=== PATIENT | male | born 1955 | race Two or more races ===

== ENCOUNTER 2017-10-13 13:03 | Inpatient (IN) | payer MEDICARE, MEDICAID ==
[~2017-10-13] VITALS: Ht 190.5 cm; Wt 104.4 kg
[~2017-10-13 13:03] MED LIST: AMBIEN10 MG ORAL; IBUPROFEN800 MG ORAL; LIPITOR20 MG ORAL; QUETIAPINE FUM100 MG ORAL
[2017-10-14 18:06] VITALS: BP 113/78
[2017-10-14] MEDS ORDERED: TIZANIDINE HCL4 MG ORAL (18:13)
[2017-10-14] MEDS ORDERED: REMERON30 MG ORAL (18:13)
[2017-10-14] MEDS ORDERED: TAMSULOSIN HCL0.4 MG ORAL (18:13)
[2017-10-14] MEDS ORDERED: ZYPREXA5 MG ORAL (18:13)
[2017-10-14] MEDS ORDERED: LYRICA25 MG ORAL (18:13)
[2017-10-14] MEDS ORDERED: NORVASC10 MG ORAL (18:13)
[2017-10-14 20:30] VITALS: BP 95/62
[2017-10-14] MEDS ORDERED: traMADol 50mg tab ORAL PRN (20:45)
[2017-10-14] MEDS ORDERED: HYDROcodone/Acetamin 10/325 tab ORAL PRN (20:45)
[2017-10-14] MEDS ORDERED: Zolpidem 5mg tab ORAL PRN (20:45)
[2017-10-15 00:18] VITALS: BP 116/62
--- NOTE | 2017-10-15 02:15 | History and Physical Report ---
DATE OF ADMISSION: 10/14/2017 REASON FOR ADMISSION: Intractable pain, dehydration, and weakness. HISTORY OF PRESENT ILLNESS: This is a 62-year-old male, who has past medical history of chronic back pain. He has currently nerve palsy, on the left side; hypertension; and degenerative arthritis came to the hospital where he has intractable pain. Time by time, has been taking [place], pain and the patient is crippled, unable to function at home, and not to currently do any chores. The patient denies any chest pain or palpitation. PAST MEDICAL HISTORY: As listed in H and P. MEDICATIONS: See the list. ALLERGIES: NKA. FAMILY HISTORY: Noncontributory. SOCIAL HISTORY: Lives at home. He quit smoking and alcohol. REVIEW OF SYSTEMS: Generalized weakness, intractable pain, weight loss, and worsening of his weakness on the left side of leg. PHYSICAL EXAMINATION: VITAL SIGNS: His blood pressure is 160/90, pulse 74, and respirations 18. No fever. SKIN: Good skin turgor. HEENT: NAD. CHEST: Bilaterally clear. CARDIOVASCULAR: Regular rhythm. No gallop. No murmur. ABDOMEN: Soft. Positive bowel sounds. Nontender. EXTREMITIES: No edema. NEUROLOGICAL: Left-sided footdrop. GENITOURINARY: Deferred. LABORATORY DATA: No labs today. ASSESSMENT AND PLAN: 1. Intractable pain. 2. Deconditioning. 3. Dehydration. 4. Severe degenerative arthritis. We will admit on medical floor. Consider pain management. Start tramadol, [place], and lidocaine patch. PT and OT. X-ray of the left knee as well as lower back. 5. Hypertension is controlled. Continue with home medications. Maverick Bowie M.D. DR: RASHAWN JOB#: [id number] CC:
[2017-10-15 04:34] VITALS: BP 122/74
[2017-10-15 06:51] LABS: BASOPHILS % (AUTO) 1.6 % (0.0-2.0); EOSINOPHILS % (AUTO) 6.9 % (0.0-3.0); HEMATOCRIT 42.9 % (42.0-52.0); HEMOGLOBIN 14.6 G/DL (14.2-18.0); LYMPHOCYTES % (AUTO) 29.1 % (20.0-45.0); MEAN CORPUSCULAR VOLUME 89 FL (80-99); MONOCYTES % (AUTO) 8.1 % (1.0-10.0); NEUTROPHILS % (AUTO) 54.3 % (45.0-75.0); PLATELET COUNT 183 K/UL (150-450); RED BLOOD COUNT 4.83 M/UL (4.70-6.10); RED CELL DISTRIBUTION WIDTH 11.4 % (11.6-14.8); WHITE BLOOD COUNT 5.4 K/UL (4.8-10.8)
[2017-10-15 07:22] LABS: ALANINE AMINOTRANSFERASE 12 U/L (12-78); ALBUMIN/GLOBULIN RATIO 0.9 (1.0-2.7); ALKALINE PHOSPHATASE 64 U/L (46-116); ANION GAP 5 mmol/L (5-15); ASPARTATE AMINO TRANSFERASE 20 U/L (15-37); BILIRUBIN,TOTAL 0.8 MG/DL (0.2-1.0); BLOOD UREA NITROGEN 16 mg/dL (7-18); CALCIUM 8.7 MG/DL (8.5-10.1); CARBON DIOXIDE 28 MMOL/L (21-32); CHLORIDE 108 MMOL/L (98-107); POTASSIUM 3.7 MMOL/L (3.5-5.1); SODIUM 141 MMOL/L (136-145)
[2017-10-15 08:00] VITALS: BP 115/70
[2017-10-15] MEDS: Atorvastatin 20mg tab ORAL SCH (08:41)
[2017-10-15] MEDS: Tamsulosin 0.4mg cap ORAL SCH (08:44)
[2017-10-15] MEDS: Cyclobenzaprine 10mg Tab ORAL SCH ×2 (08:45→17:21)
[2017-10-15] MEDS: Lyrica 25mg cap ORAL SCH ×3 (10:48→17:21)
--- NOTE | 2017-10-15 11:57 | Diagnostic Imaging Report ---
Indication: Knee pain 2 views of the left knee were obtained. Findings: No acute fracture, malalignment, or joint effusion are identified. Bones are osteopenic. Marginal spurs and joint space narrowing noted. Impression: No acute injury
--- NOTE | 2017-10-15 11:58 | Diagnostic Imaging Report ---
Indication: Back pain Comparison: None Findings: 5 views of the lumbar spine were obtained. Multilevel narrowing of intervertebral disks and associated endplate and moderate facet osteophytes are present. No malalignment identified. No acute fracture definitely seen. Impression: Mild spondylosis. No acute injury appreciated.
[2017-10-15 12:00] VITALS: BP 114/71
[2017-10-15 16:00] VITALS: BP 110/69
[2017-10-15 20:00] VITALS: BP 122/78
--- NOTE | 2017-10-15 22:00 | Progress Note ---
DATE: 10/15/2017 SUBJECTIVE: The patient is a 62-year-old male, currently awake, comfortable, and still having intractable pain, but is improving. OBJECTIVE: VITAL SIGNS: Blood pressure 140/90, pulse 70s, and respirations 18. HEENT: NAD. CHEST: Bilaterally clear. CARDIOVASCULAR: Regular rhythm. No gallop. No murmur. ABDOMEN: Soft. EXTREMITIES: CCE. NEUROLOGICAL: Generalized weakness. ASSESSMENT: 1. Intractable pain. 2. Foot drop. 3. Hypertension. 4. Generalized weakness. LABORATORY AND DIAGNOSTIC DATA: His labs are unremarkable. X-ray also showed mild arthritis of his spine and knee. PLAN: 1. Consider pain management. 2. Continue current [place] and continue gabapentin. 3. Continue PT and OT. Maverick Bowie M.D. DR: CRISTINA JOB#: [id number] CC:
[2017-10-16 00:59] VITALS: BP 121/64
[2017-10-16 04:59] VITALS: BP 118/78
[2017-10-16 08:00] VITALS: BP 115/70
--- NOTE | 2017-10-16 08:33 | Consultation ---
History of Present Illness General Date patient seen: Oct 16, 2017 Present Illness Allergies: Coded Allergies: No Known Allergies (Unverified , 06/16/13) Medication History Scheduled Amlodipine Besylate (Norvasc), 10 MG ORAL DAILY, (Reported) Ibuprofen* (Motrin*), 800 MG ORAL THREE TIMES A DAY, (Reported) Mirtazapine* (Remeron*), 30 MG ORAL BEDTIME, (Reported) Olanzapine* (Zyprexa*), 5 MG ORAL QHS, (Reported) Pregabalin (Lyrica), 50 MG ORAL THREE TIMES A DAY, (Reported) Quetiapine Fumarate* (Seroquel*), 100 MG ORAL DAILY, (Reported) Tamsulosin Hcl (Tamsulosin Hcl*), 0.4 MG ORAL DAILY, (Reported) Tizanidine Hcl* (Zanaflex*), 4 MG ORAL THREE TIMES A DAY, (Reported) Scheduled PRN Atorvastatin Calcium* (Lipitor*), 20 MG ORAL DAILY PRN for Per rx protocol, ( Reported) Zolpidem Tartrate* (Ambien*), 10 MG ORAL BEDTIME PRN for Insomnia, (Reported) Patient History Healthcare decision maker Resuscitation status Full Code Advanced Directive on File Physical Exam Last 24 Hour Vital Signs Date Time Temp Pulse Resp B/P (MAP) Pulse Ox O2 Delivery O2 Flow Rate FiO2 10/16/17 04:59 97.7 64 18 118/78 (91) 98 97.7 10/16/17 00:59 97.6 68 18 121/64 (83) 98 97.6 10/15/17 22:28 98.2 10/15/17 22:24 Room Air 10/15/17 21:29 98.2 10/15/17 20:00 98.5 73 18 122/78 (93) 98 98.5 10/15/17 18:20 98.2 10/15/17 18:20 98.2 10/15/17 17:21 98.2 10/15/17 17:21 98.2 10/15/17 16:00 98.2 70 19 110/69 (83) 96 98.2 10/15/17 13:28 97.6 10/15/17 13:28 97.6 10/15/17 12:00 97.7 63 18 114/71 (85) 99 97.7 10/15/17 10:48 97.6 10/15/17 08:45 68 115/70 10/15/17 08:44 97.6 Intake and Output 10/15/17 10/16/17 19:00 07:00 Intake Total 480 ml 360 ml Balance 480 ml 360 ml Intake Oral 480 ml 360 ml # Voids 4 3 Height (Feet): 6 Height (Inches): 3.00 Weight (Pounds): 228 Medications Current Medications Medications (Trade) Dose Ordered Sig/Clara Route PRN Reason Start Time Stop Time Status Last Admin Dose Admin Acetaminophen (Tylenol) 650 mg Q4H PRN ORAL Mild Pain/Temp > 100.5 10/14/17 20:45 11/13/17 20:44 10/15/17 21:29 Acetaminophen/ Hydrocodone Bitart ([place] 10/325) 1 tab Q6H PRN ORAL Severe Pain (Pain Scale 7-10) 10/14/17 20:45 10/21/17 20:44 Amlodipine Besylate (Norvasc) 10 mg DAILY ORAL 10/15/17 09:00 11/14/17 08:59 Atorvastatin Calcium (Lipitor) 20 mg DAILY ORAL 10/15/17 09:00 11/14/17 08:59 10/15/17 08:41 Cyclobenzaprine HCl (Flexeril) 10 mg BID ORAL 10/15/17 09:00 11/14/17 08:59 Lidocaine (Lidoderm 5% PATCH) 3 patch DAILY TDERMAL 10/15/17 09:00 11/14/17 08:59 10/15/17 08:44 Mirtazapine (Remeron) 30 mg QHS ORAL 10/14/17 21:30 11/13/17 21:29 Olanzapine (ZyPREXA) 5 mg QHS ORAL 10/14/17 21:00 11/13/17 20:59 Pregabalin (Lyrica) 50 mg THREE TIMES A DAY ORAL 10/15/17 09:00 11/14/17 08:59 10/15/17 17:21 Quetiapine Fumarate (SEROquel) 100 mg DAILY ORAL 10/15/17 09:00 11/14/17 08:59 Sodium Chloride 1,000 ml @ 75 mls/hr [id number] IV 10/14/17 20:45 11/13/17 20:44 Tamsulosin HCl (Flomax) 0.4 mg DAILY ORAL 10/15/17 09:00 11/14/17 08:59 10/15/17 08:44 Tizanidine HCl (Zanaflex) 4 mg THREE TIMES A DAY ORAL 10/15/17 09:00 11/14/17 08:59 10/15/17 17:21 Tramadol HCl (Ultram) 50 mg Q4H PRN ORAL Moderate Pain (Pain Scale 4-6) 10/14/17 20:45 10/21/17 20:44 Zolpidem Tartrate (Ambien) 5 mg BEDTIME PRN ORAL Insomnia 10/14/17 20:45 10/21/17 20:44 10/15/17 21:28 Assessment/Plan Assessment/Plan (1) Cervical DDD (2) Cervical Spondylosis (3) H/O Cervical surgery (4) Lumbar DDD (5) Lumbar Spondylosis (6) H/O Lumbar surgery Seen dictated. Tariq Martinez Oct 16, 2017 08:33
[2017-10-16] MEDS: Tamsulosin 0.4mg cap ORAL SCH (08:46)
[2017-10-16] MEDS: Atorvastatin 20mg tab ORAL SCH (08:46)
[2017-10-16] MEDS: Lyrica 50mg cap ORAL SCH ×3 (08:53→18:16)
[2017-10-16] MEDS: Cyclobenzaprine 10mg Tab ORAL SCH ×2 (08:53→18:17)
[2017-10-16] MEDS ORDERED: Gadavist 7.5mMol/7.5ml vial IV PRN ×2 (09:00)
[2017-10-16] MEDS ORDERED: LORazepam 1mg tab ORAL SCH (10:00)
[2017-10-16 12:00] VITALS: BP 112/72
[2017-10-16 16:00] VITALS: BP 117/86
--- NOTE | 2017-10-16 16:18 | Diagnostic Imaging Report ---
Indication: Neck pain Technique: MRI examination of the cervical spine was performed in a 1.5 Snehal magnet. Sequences obtained include sagittal and axial T1 and T2 fast spin echo, and sagittal STIR. Comparison: none Findings: There is susceptibility 6 artifact at C3-4 presumably due to hardware. Desiccation and narrowing of multiple intervertebral discs demonstrated. There is no obvious disc herniation. There is generalized diminished diameter of the spinal canal throughout the cervical spine presumably congenital. There is limitation with diminished [id number] ratio and resolution partially on the basis of motion. The foramen magnum and C1-2 are unremarkable. C2-3 notable for moderate left foraminal stenosis due to uncovertebral arthritis. C3-4 demonstrates moderate to severe bilateral foraminal stenosis and central spinal stenosis. C4-5 demonstrates central spinal stenosis moderate to severe bilateral foraminal stenosis. C5-6 demonstrates central spinal stenosis and moderate to severe bilateral foraminal stenosis. C6-7 demonstrates moderate to severe bilateral foraminal stenosis and possible mild central stenosis. C7-T1 demonstrates no definite central or neural foraminal stenosis. Bone marrow signal is mostly normal but there is limitation in evaluation of this. The spinal cord difficult to evaluate due to the artifact present. There is a suggestion of mild myelomalacia in the mid to upper part of the cervical spine. IMPRESSION: Limited evaluation as described above. Multilevel mild to moderate central spinal stenosis and moderate to severe bilateral foraminal stenosis as described above.
--- NOTE | 2017-10-16 16:20 | Diagnostic Imaging Report ---
Indication: Back pain Technique: MRI examination of the lumbar spine was performed in a 1.5 Snehal magnet. Sequences obtained include sagittal and axial T1 and T2 fast spin echo, and sagittal STIR. Comparison: none Findings: Bone marrow signal is essentially normal. There is no malalignment identified. The visualized part of the distal spinal cord appears normal. Cord terminates with visualization of the conus medullaris at L1. T12-L1 is unremarkable. L1-2 shows normal appearance of the disc and facets. L2-3 shows hypertrophy of the lumbar facets. There is no evidence of central canal or foraminal stenosis. L3-4 shows desiccation and narrowing of intervertebral disc and a wide based disc bulge that appears concentric. This moderate facet arthropathy demonstrated. Mild central stenosis, narrowing of the lateral recess and mild to moderate bilateral foraminal stenosis demonstrated. L4-5 with desiccation and narrowing of intervertebral discs, wide-based concentric disc bulge and facet arthropathy. Mild central spinal stenosis is present. Mild to moderate bilateral foraminal stenosis narrowing noted. L5-S1 disc appears normal. Facet arthropathy is present. No definite central stenosis or foraminal stenosis. Partially imaged right-sided renal cysts are noted. IMPRESSION: Degenerative disease involving the L3-4 and L4-5 levels characterized by concentric disc bulges, central spinal stenosis, narrowing of the lateral recess and mild to moderate bilateral foraminal stenosis. Multilevel facet arthropathy as described above Multiple cysts within the right kidney partially imaged on this study
--- NOTE | 2017-10-16 19:47 | Consultation ---
DATE OF CONSULTATION: 10/16/2017 PAIN MANAGEMENT CONSULTATION CONSULTING PHYSICIAN: Robin Sanchez M.D. REFERRING PHYSICIAN: Maverick Bowie M.D. PHYSICIAN ACADEMIC INTERVENTIONIST: Karly Medel CHIEF COMPLAINT: Neck and low back pain. HISTORY OF PRESENT ILLNESS: This is a 62-year-old male, who is being seen on the Medical/Surgical floor of [facility] for initial comprehensive pain management consultation. The patient reports that he has been having neck and low back pain for many years, having multiple surgeries on his cervical and lumbar spine, being seen by Dr. Gallardo, receiving [place] 10/325 mg three times a day with Lyrica 50 mg 3 times a day. He was admitted under the care of Dr. Bowie due to failure to thrive and abdominal pain. Reporting that he is doing better at this time. Pain reaches 10/10 at its worst, was started on [place] 10/325 mg one tablet every 6 hours as needed for severe pain and tramadol 50 mg one tablet every 4 hours as needed for moderate pain, however, the patient has not requested those medications at this time. The patient also had been on Neurontin, but it was discontinued and now will be restarted on his home medication of Lyrica 50 mg tablet 3 times a day. We were consulted so that the patient will have adequate pain control while here in the hospital. PAST MEDICAL HISTORY: Hypertension. PAST SURGICAL HISTORY: Cervical and lumbar surgeries. SOCIAL HISTORY: History of smoking tobacco. Drinks alcohol occasionally. Denies IV drug abuse. ALLERGIES: No known drug allergies. MEDICATIONS: Norvasc, Motrin, Remeron, Zyprexa, Lyrica, Seroquel, tamoxifen, Zanaflex, Ambien, Lipitor, and [place]. REVIEW OF SYSTEMS: Denies rash, fever, chills, sweating, dizziness, drowsiness, or change in weight. No shortness of breath. The patient has no nausea, vomiting, diarrhea, or blood in the stool or urine. No bowel or bladder incontinent. He is complaining of neck and low back pain. PHYSICAL EXAMINATION: GENERAL: Alert, awake, and oriented x3. VITAL SIGNS: Blood pressure 118/78, heart rate is 64, oxygen saturation 98%, respirations 18, and temperature 97.7 degrees Fahrenheit. HEENT: PERRLA. NECK: Range of motion is decreased due to the patient's pain and condition. No tenderness to paracervical muscles. No adenopathy. LUNGS: Decreased breath sounds bilaterally. HEART: S1 and S2 regular. ABDOMEN: Benign. BACK: Range of motion is decreased in flexion and extension with tenderness to paraspinal muscles. Surgical scar noted on midline of the lumbar spine. EXTREMITIES: Upper and lower extremity range of motion is decreased due to the patient's condition. No cyanosis. No clubbing. No edema. Sensory is intact. Reflexes are not obtainable. No adenopathy. ASSESSMENT AND PLAN: This is a 62-year-old male with cervical and lumbar degenerative disc disease, cervical and lumbar spondylosis, history of cervical and lumbar surgery. At this time, we will continue the patient on [place] and tramadol and start the patient on Lyrica 50 mg 1 tablet 3 times a day as well as order an MRI of the cervical and lumbar spine with contrast to rule out further pathology. The patient was discussed with Dr. Sanchez and Dr. Sanchez concurred. We will follow the patient. Thank you very much for the courtesy of this consultation. Robin Sanchez M.D. DELGADO Medel DR: YAYA JOB#: [id number] CC:
[2017-10-16 20:00] VITALS: BP 118/74
[2017-10-17] VITALS: BP 141/87
[2017-10-17 04:00] VITALS: BP 129/76
--- NOTE | 2017-10-17 04:16 | Progress Note ---
DATE: 10/17/2017 SUBJECTIVE: This is an elderly male with current . The patient also received physical therapy. OBJECTIVE: VITAL SIGNS: Blood pressure is 130/70, pulse 70, and respirations 18. SKIN: Good skin turgor. HEENT: NAD. CHEST: Bilaterally clear. CARDIOVASCULAR: Regular rhythm. No gallop. No murmur. ABDOMEN: Soft. EXTREMITIES: CCE. NEUROLOGICAL: No focal deficit. ASSESSMENT: 1. Acute intractable pain. 2. Hypertension. 3. Footdrop. 4. Depression. PLAN: Continue current medical treatment. Continue pain medicine gabapentin and [place] for pain management. . Maverick Bowie M.D. DR: YNES JOB#: [id number] CC:
[2017-10-17 08:00] VITALS: BP 131/86
[2017-10-17] MEDS: Atorvastatin 20mg tab ORAL SCH (09:00)
[2017-10-17] MEDS: Tamsulosin 0.4mg cap ORAL SCH (09:27)
[2017-10-17] MEDS: Lyrica 50mg cap ORAL SCH ×2 (09:28→13:00)
[2017-10-17] MEDS: Cyclobenzaprine 10mg Tab ORAL SCH (09:28)
--- NOTE | 2017-10-17 10:49 | General Progress Note ---
Assessment/Plan Assessment/Plan (1) Cervical DDD (2) Cervical Spondylosis (3) H/O Cervical surgery (4) Lumbar DDD (5) Lumbar Spondylosis (6) H/O Lumbar surgery Patient will be continued on [place] and Tramadol as needed D/w Dr. Sanchez and he concurred. Subjective Date patient seen: Oct 17, 2017 Time patient seen: 07:15 - am Allergies: Coded Allergies: No Known Allergies (Unverified , 06/16/13) Subjective REVIEW OF SYSTEMS: Denies rash, fever, chills, sweating, dizziness, drowsiness, or change in weight. No shortness of breath. The patient has no nausea, vomiting, diarrhea, or blood in the stool or urine. No bowel or bladder incontinent. He is complaining of neck and low back pain. SUBJECTIVE: Patient is in bed and reports that his pain has been at a moderate level. He has no new complaints. Pain is tolerated on the Lyrica has not requested the [place] or tramadol. Objective Last 24 Hour Vital Signs Date Time Temp Pulse Resp B/P (MAP) Pulse Ox O2 Delivery O2 Flow Rate FiO2 10/17/17 10:26 97.9 10/17/17 10:26 97.9 10/17/17 09:28 97.9 10/17/17 09:27 97.9 10/17/17 09:27 68 131/86 10/17/17 08:30 Room Air 10/17/17 08:00 97.9 68 19 131/86 (101) 93 97.9 10/17/17 04:00 97.9 86 18 129/76 (93) 96 97.9 10/17/17 00:00 98.2 79 17 141/87 (105) 95 98.2 10/16/17 21:00 Room Air 10/16/17 20:00 97.6 74 19 118/74 (89) 96 97.6 10/16/17 18:17 97.7 10/16/17 18:16 97.7 10/16/17 16:00 97.7 76 18 117/86 (96) 94 97.7 10/16/17 15:01 98.1 10/16/17 12:00 98.1 74 19 112/72 (85) 97 98.1 Intake and Output 10/16/17 10/17/17 19:00 07:00 Intake Total 750 ml 360 ml Balance 750 ml 360 ml Intake Oral 750 ml 360 ml # Voids 2 3 Height (Feet): 6 Height (Inches): 3.00 Weight (Pounds): 230 Objective GENERAL: Alert, awake, and oriented x3. HEENT: PERRLA. LUNGS: Decreased breath sounds bilaterally. HEART: S1 and S2 regular. ABDOMEN: Benign. EXTREMITIES: No cyanosis. No clubbing. No edema. NEURO: No changes. Procedure: MRI C Spine no Contrast Indication: Neck pain Technique: MRI examination of the cervical spine was performed in a 1.5 Snehal magnet. Sequences obtained include sagittal and axial T1 and T2 fast spin echo, and sagittal STIR. Comparison: none Findings: There is susceptibility 6 artifact at C3-4 presumably due to hardware. Desiccation and narrowing of multiple intervertebral discs demonstrated. There is no obvious disc herniation. There is generalized diminished diameter of the spinal canal throughout the cervical spine presumably congenital. There is limitation with diminished krdjez-[id number]-hkmxr ratio and resolution partially on the basis of motion. The foramen magnum and C1-2 are unremarkable. C2-3 notable for moderate left foraminal stenosis due to uncovertebral arthritis. C3-4 demonstrates moderate to severe bilateral foraminal stenosis and central spinal stenosis. C4-5 demonstrates central spinal stenosis moderate to severe bilateral foraminal stenosis. C5-6 demonstrates central spinal stenosis and moderate to severe bilateral foraminal stenosis. C6-7 demonstrates moderate to severe bilateral foraminal stenosis and possible mild central stenosis. C7-T1 demonstrates no definite central or neural foraminal stenosis. Bone marrow signal is mostly normal but there is limitation in evaluation of this. The spinal cord difficult to evaluate due to the artifact present. There is a suggestion of mild myelomalacia in the mid to upper part of the cervical spine. IMPRESSION: Limited evaluation as described above. Multilevel mild to moderate central spinal stenosis and moderate to severe bilateral foraminal stenosis as described above. Procedure: MRI L Spine no Contrast Indication: Back pain Technique: MRI examination of the lumbar spine was performed in a 1.5 Snehal magnet. Sequences obtained include sagittal and axial T1 and T2 fast spin echo, and sagittal STIR. Comparison: none Findings: Bone marrow signal is essentially normal. There is no malalignment identified. The visualized part of the distal spinal cord appears normal. Cord terminates with visualization of the conus medullaris at L1. T12-L1 is unremarkable. L1-2 shows normal appearance of the disc and facets. L2-3 shows hypertrophy of the lumbar facets. There is no evidence of central canal or foraminal stenosis. L3-4 shows desiccation and narrowing of intervertebral disc and a wide based disc bulge that appears concentric. This moderate facet arthropathy demonstrated. Mild central stenosis, narrowing of the lateral recess and mild to moderate bilateral foraminal stenosis demonstrated. L4-5 with desiccation and narrowing of intervertebral discs, wide-based concentric disc bulge and facet arthropathy. Mild central spinal stenosis is present. Mild to moderate bilateral foraminal stenosis narrowing noted. L5-S1 disc appears normal. Facet arthropathy is present. No definite central stenosis or foraminal stenosis. Partially imaged right-sided renal cysts are noted. IMPRESSION: Degenerative disease involving the L3-4 and L4-5 levels characterized by concentric disc bulges, central spinal stenosis, narrowing of the lateral recess and mild to moderate bilateral foraminal stenosis. Multilevel facet arthropathy as described above Tariq Martinez Oct 17, 2017 10:48
[2017-10-17 11:57] VITALS: BP 145/79
--- NOTE | 2017-10-17 21:16 | Progress Note ---
DATE: 10/17/2017 SUBJECTIVE: This is an elderly male, currently receiving physical therapy, unable to walk with generalized weakness and has footdrop and unable to take care of himself. He had no fever or chills. OBJECTIVE: VITAL SIGNS: His blood pressure is controlled, 140/90, pulse 74, and respirations 18. SKIN: Good skin turgor. HEENT: NAD. CHEST: Bilaterally clear. CARDIOVASCULAR: Regular rhythm. No gallop or murmur. ABDOMEN: Soft. EXTREMITIES: No swelling. GENITOURINARY: Deferred. LABORATORY AND DIAGNOSTIC DATA: The patient's labs are unremarkable. ASSESSMENT: 1. Intractable pain is improved. 2. Footdrop. 3. History of cerebrovascular accident. 4. Hypertension. 5. Depression. PLAN: We will currently continue Neurontin. Continue Ultram and [place] for severe pain. Continue supportive care. PT and OT will be rehab program improve basic ADLs. Maverick Bowie M.D. DR: CRISTINA JOB#: [id number] CC:
--- NOTE | 2017-10-17 22:59 | Consultation ---
History of Present Illness General Date patient seen: Oct 15, 2017 Present Illness HPI 62-year-old male, who has past medical history of chronic back pain, bipolar d/o and anxiety. The pt is labile and has been irritable and complaining of back pain. The pt has diff sleeping. thept stated that he doesnt want to be on his psych meds no si/hi Allergies: Coded Allergies: No Known Allergies (Unverified , 06/16/13) Medication History Scheduled Amlodipine Besylate (Norvasc), 10 MG ORAL DAILY, (Reported) Ibuprofen* (Motrin*), 800 MG ORAL THREE TIMES A DAY, (Reported) Mirtazapine* (Remeron*), 30 MG ORAL BEDTIME, (Reported) Olanzapine* (Zyprexa*), 5 MG ORAL QHS, (Reported) Pregabalin (Lyrica), 50 MG ORAL THREE TIMES A DAY, (Reported) Quetiapine Fumarate* (Seroquel*), 100 MG ORAL DAILY, (Reported) Tamsulosin Hcl (Tamsulosin Hcl*), 0.4 MG ORAL DAILY, (Reported) Tizanidine Hcl* (Zanaflex*), 4 MG ORAL THREE TIMES A DAY, (Reported) Scheduled PRN Atorvastatin Calcium* (Lipitor*), 20 MG ORAL DAILY PRN for Per rx protocol, ( Reported) Zolpidem Tartrate* (Ambien*), 10 MG ORAL BEDTIME PRN for Insomnia, (Reported) Patient History Limited by: medical condition History Provided By: Patient, Medical Record, PMD Healthcare decision maker Resuscitation status Full Code Advanced Directive on File Past Medical/Surgical History Past Medical/Surgical History: (1) Failure to thrive (2) Abdominal pain Review of Systems Psychiatric: Reports: prior hx, anxiety, depressed feelings, emotional problems Physical Exam General Appearance: no apparent distress, alert Neurologic: oriented x 3, responsive, depressed affect Last 24 Hour Vital Signs Date Time Temp Pulse Resp B/P (MAP) Pulse Ox O2 Delivery O2 Flow Rate FiO2 10/17/17 11:57 97.7 72 20 145/79 (101) 94 97.7 10/17/17 10:26 97.9 10/17/17 10:26 97.9 10/17/17 09:28 97.9 10/17/17 09:27 97.9 10/17/17 09:27 68 131/86 10/17/17 08:30 Room Air 10/17/17 08:00 97.9 68 19 131/86 (101) 93 97.9 10/17/17 04:00 97.9 86 18 129/76 (93) 96 97.9 10/17/17 00:00 98.2 79 17 141/87 (105) 95 98.2 Intake and Output 10/16/17 10/17/17 19:00 07:00 Intake Total 750 ml 360 ml Balance 750 ml 360 ml Intake Oral 750 ml 360 ml # Voids 2 3 Height (Feet): 6 Height (Inches): 3.00 Weight (Pounds): 230 Assessment/Plan Status: stable Assessment/Plan bipolar d/o cont seroquel vitaliy zyprexa cont Natalie Gonsalez MD Oct 17, 2017 22:59
--- NOTE | 2017-10-17 23:04 | General Progress Note ---
Assessment/Plan Status: stable, progressing Assessment/Plan bipolar d/o cont seroquel dc zyprexa cont ativan prn Subjective Date patient seen: Oct 16, 2017 Neurologic/Psychiatric: Reports: anxiety, depressed, emotional problems Allergies: Coded Allergies: No Known Allergies (Unverified , 06/16/13) Objective Last 24 Hour Vital Signs Date Time Temp Pulse Resp B/P (MAP) Pulse Ox O2 Delivery O2 Flow Rate FiO2 10/17/17 11:57 97.7 72 20 145/79 (101) 94 97.7 10/17/17 10:26 97.9 10/17/17 10:26 97.9 10/17/17 09:28 97.9 10/17/17 09:27 97.9 10/17/17 09:27 68 131/86 10/17/17 08:30 Room Air 10/17/17 08:00 97.9 68 19 131/86 (101) 93 97.9 10/17/17 04:00 97.9 86 18 129/76 (93) 96 97.9 10/17/17 00:00 98.2 79 17 141/87 (105) 95 98.2 Intake and Output 10/16/17 10/17/17 19:00 07:00 Intake Total 750 ml 360 ml Balance 750 ml 360 ml Intake Oral 750 ml 360 ml # Voids 2 3 Height (Feet): 6 Height (Inches): 3.00 Weight (Pounds): 230 General Appearance: no apparent distress, alert Neurologic: oriented x 3, responsive, depressed affect Natalie Mac MD Oct 17, 2017 23:04
--- NOTE | 2017-10-17 23:05 | General Progress Note ---
Assessment/Plan Assessment/Plan bipolar d/o cont seroquel dc zyprexa cont ativan prn Subjective Date patient seen: Oct 17, 2017 Neurologic/Psychiatric: Reports: anxiety, depressed, emotional problems Allergies: Coded Allergies: No Known Allergies (Unverified , 06/16/13) Subjective the pt was more irritable and angry Objective Last 24 Hour Vital Signs Date Time Temp Pulse Resp B/P (MAP) Pulse Ox O2 Delivery O2 Flow Rate FiO2 10/17/17 11:57 97.7 72 20 145/79 (101) 94 97.7 10/17/17 10:26 97.9 10/17/17 10:26 97.9 10/17/17 09:28 97.9 10/17/17 09:27 97.9 10/17/17 09:27 68 131/86 10/17/17 08:30 Room Air 10/17/17 08:00 97.9 68 19 131/86 (101) 93 97.9 10/17/17 04:00 97.9 86 18 129/76 (93) 96 97.9 10/17/17 00:00 98.2 79 17 141/87 (105) 95 98.2 Intake and Output 10/16/17 10/17/17 19:00 07:00 Intake Total 750 ml 360 ml Balance 750 ml 360 ml Intake Oral 750 ml 360 ml # Voids 2 3 Height (Feet): 6 Height (Inches): 3.00 Weight (Pounds): 230 Natalie Mac MD Oct 17, 2017 23:05
--- NOTE | 2017-10-20 08:10 | Discharge Summary ---
Discharge Summary Discharge Summary _ DATE OF ADMISSION: 10/14/2017 DATE OF DISCHARGE: 10/17/2017 REASON FOR ADMISSION: 62 years old male with past medical history of chronic neck and back pain, hypertension, degenerative arthritis, history of cervical and lumbar surgery, was sent from the detention facility for intractable pain, dehydration and deconditioning. . Patient admitted with diagnoses of intractable pain, dehydration, deconditioning, severe degenerative arthritis, hypertension. CONSULTANTS: psychiatrist Pain specialist Dr. Sanchez [facility] COURSE: Patient admitted to medical surgical floor. Patient was on the IV hydration. Pain specialist consulted. Pain management provided with multiply array of medications as per pain specialist recommendations. Pain was brought under control. Patient was working with physical and occupational therapists. X-ray of the left knee revealed no acute pathology. Lumbar spine x-ray revealed spondylosis, but no acute injury was appreciated. Lumbar spine MRI revealed degenerative disease involving L3-4 and L4-L5 levels with central spinal stenosis and moderate foraminal stenosis. Multilevel facet arthropathy. MRI of cervical spine revealed multilevel mild to moderate central spinal stenosis and moderate to severe bilateral foraminal stenosis. Blood pressure was managed with calcium channel corina. Statin was continued. Flomax was continued. Psychiatrist seen and evaluated patient, diagnosed patient with bipolar disorder. Psychiatrist optimized psychiatric medication regimen. Fall precautions maintained Supportive care provided. Bowel regimen instituted Patient was stable for discharge to detention facility for further rehabilitation FINAL DIAGNOSES: Intractable pain Dehydration Severe degenerative arthritis Deconditioning Severe cervical DDD Cervical spondylosis Lumbar DDD Lumbar spondylolisthesis History of cervical surgery History of lumbar surgery Hypertension Bipolar disorder DISCHARGE MEDICATIONS: See Medication Reconciliation list. DISCHARGE INSTRUCTIONS: Patient discharged to detention facility. Follow up with medical doctor at the facility. I have been assigned to dictate discharge summary for this account. I was not involved in the patient's management. Gay Cuba NP Oct 20, 2017 08:10
== END 2017-10-17 13:10 | DRG 552 ==
LOC: 4W 10-14 17:40
DX: M51.36 Other intervertebral disc degeneration, lumbar region (principal); M50.30 Other cervical disc degeneration, unspecified cervical region; M48.061 Spinal stenosis, lumbar region without neurogenic claudication; M19.90 Unspecified osteoarthritis, unspecified site; E86.0 Dehydration; I10 Essential (primary) hypertension; M21.379 Foot drop, unspecified foot; M48.02 Spinal stenosis, cervical region; F31.9 Bipolar disorder, unspecified; M43.16 Spondylolisthesis, lumbar region; M47.812 Spondylosis without myelopathy or radiculopathy, cervical region; Z86.73 Personal history of transient ischemic attack (TIA), and cerebral infarction without residual deficits
CPT/HCPCS: 36415; 72110; 72141; 72148; 80053; 85025

== ENCOUNTER 2018-09-22 13:08 | Inpatient (IN) | payer MEDICARE, MEDICAID ==
[~2018-09-22] VITALS: Ht 188 cm; Wt 96.2 kg
[~2018-09-22 13:08] MED LIST changes: +LYRICA25 MG ORAL; +NORVASC10 MG ORAL; +REMERON30 MG ORAL; +TAMSULOSIN HCL0.4 MG ORAL; +TIZANIDINE HCL4 MG ORAL; +ZYPREXA5 MG ORAL
--- NOTE | 2018-09-22 13:15 | NUR ---
ED Nurse Note: pt went to restroom before triage.
--- NOTE | 2018-09-22 13:28 | NUR ---
ED Nurse Note: Patient walked into ED using cane for admission, per patient Dr. Bowie, his primary doctor referred him to ED. Patient is alert awake x4 ambulatory with cane with minimal assistance.
--- NOTE | 2018-09-22 13:35 | NUR ---
ED Nurse Note: call light provided to the patient.
[2018-09-22 14:49] LABS: APPEARANCE,URINE CLEAR; BILIRUBIN, URINE NEGATIVE (NEGATIVE); COLOR,URINE PALE YELLOW; GLUCOSE, URINE (UA) NEGATIVE (NEGATIVE); KETONES,URINE NEGATIVE (NEGATIVE); LEUKOCYTE ESTERASE ,URINE NEGATIVE (NEGATIVE); NITRITE,URINE NEGATIVE (NEGATIVE); PH,URINE 5 (4.5-8.0); PROTEIN,URINE NEGATIVE (NEGATIVE); UROBILINOGEN,URINE NORMAL MG/DL (0.0-1.0)
[2018-09-22 14:56] LABS: BASOPHILS % (AUTO) 1.5 % (0.0-2.0); EOSINOPHILS % (AUTO) 4.1 % (0.0-3.0); HEMATOCRIT 44.9 % (42.0-52.0); HEMOGLOBIN 15.2 G/DL (14.2-18.0); LYMPHOCYTES % (AUTO) 33.5 % (20.0-45.0); MEAN CORPUSCULAR VOLUME 87 FL (80-99); MONOCYTES % (AUTO) 8.7 % (1.0-10.0); NEUTROPHILS % (AUTO) 52.2 % (45.0-75.0); PLATELET COUNT 225 K/UL (150-450); RED BLOOD COUNT 5.14 M/UL (4.70-6.10); RED CELL DISTRIBUTION WIDTH 11.1 % (11.6-14.8); WHITE BLOOD COUNT 5.5 K/UL (4.8-10.8)
--- NOTE | 2018-09-22 15:00 | NUR ---
ED Nurse Note: Educated patient to use call light and stay in bed as he is on fall precaution. patient verbalized understanding. both side rails up
--- NOTE | 2018-09-22 15:01 | NUR ---
ED Nurse Note: urinal provided to the patient.
[2018-09-22 15:11] LABS: ANION GAP 6 mmol/L (5-15); BLOOD UREA NITROGEN 13 mg/dL (7-18); CALCIUM 9.4 MG/DL (8.5-10.1); CARBON DIOXIDE 29 MMOL/L (21-32); CHLORIDE 99 MMOL/L (98-107); POTASSIUM 4.6 MMOL/L (3.5-5.1); SODIUM 134 MMOL/L (136-145)
[2018-09-22 15:15] LABS: ALANINE AMINOTRANSFERASE 10 U/L (12-78); ALBUMIN 3.7 G/DL (3.4-5.0); ALKALINE PHOSPHATASE 54 U/L (46-116); ASPARTATE AMINO TRANSFERASE 13 U/L (15-37); BILIRUBIN,TOTAL 0.8 MG/DL (0.2-1.0)
[2018-09-22 15:34] VITALS: BP 129/78
--- NOTE | 2018-09-22 15:49 | Emergency Room Report ---
History of Present Illness General Chief Complaint: General Complaint Source: Medical Record Present Illness HPI 63-year-old male with history of bipolar disorder, depression, multiple 5 falls and failure to thrive here sent by Dr. Bowie for admission patient does not know why he is here and he reports that he had abnormal labs and Dr. Bowie told him to come to [facility] for admission. Patient is walking to the emergency room with a cane and carrying on walking comfortably in no apparent distress. Denies chest pain, short of breath, palpitation, nausea vomiting, any injury specifically head injury. After speaking on the phone with Dr. Bowie and Dr Varma to have patient admitted as inpatient due to patient being severely depressed as he has had multiple falls does not feel comfortable patient to be by himself further evaluation as he cannot take care of himself due to multiple falls. Patient is not capable of taking care of himself at home and confused about the reason why he is here. Allergies: Coded Allergies: No Known Allergies (Unverified , 06/16/13) Patient History Past Medical History: see triage record Past Surgical History: unable to obtain Pertinent Family History: none Immunizations: UTD Nursing Documentation-[facility] Past Medical History: No History, Except For Hx Cardiac Problems: Yes Hx Hypertension: Yes Hx Asthma: Yes Hx Cancer: Yes - gastric Hx Gastrointestinal Problems: Yes - GASTRIC CANCER, ULCERS Hx Neurological Problems: No Review of Systems All Other Systems: negative except mentioned in HPI Physical Exam Vital Signs Date Time Temp Pulse Resp B/P (MAP) Pulse Ox O2 Delivery O2 Flow Rate FiO2 09/22/18 13:20 98.4 82 16 122/78 (93) 96 Room Air Sp02 EP Interpretation: reviewed, normal General Appearance: normal inspection, well appearing, no apparent distress Head: normocephalic, atraumatic Eyes: bilateral eye normal inspection, bilateral eye PERRL ENT: normal ENT inspection, hearing grossly normal, normal pharynx, no angioedema Neck: normal inspection, full range of motion, supple, thyroid normal, no carotid bruits Respiratory: normal inspection, chest non-tender, lungs clear, no retraction, no wheezing Cardiovascular #1: normal inspection, normal peripheral pulses, regular rate, rhythm, no edema, no murmur Gastrointestinal: normal inspection, non tender, soft Rectal: deferred Genitourinary: no CVA tenderness Musculoskeletal: normal inspection, back normal Neurologic: normal inspection, alert, oriented x3 Psychiatric: normal inspection, judgement/insight normal Skin: normal inspection, normal color, no rash, warm/dry Lymphatic: normal inspection, no adenopathy Medical Decision Making PA Attestation All my diagnosis and treatment plans were reviewed ad discussed with my supervising physician Dr. Varma Diagnostic Impression: Primary Impression: Failure to thrive Additional Impressions: Multiple falls Depression ER Course 63-year-old male with history of bipolar disorder, depression, multiple 5 falls and failure to thrive here sent by Dr. Bowie for admission patient does not know why he is here and he reports that he had abnormal labs and Dr. Bowie told him to come to [facility] for admission. Patient is walking to the emergency room with a cane and carrying on walking comfortably in no apparent distress. Denies chest pain, short of breath, palpitation, nausea vomiting, any injury specifically head injury. After speaking on the phone with Dr. Bowie and Dr Varma to have patient admitted as inpatient due to patient being severely depressed as he has had multiple falls does not feel comfortable patient to be by himself further evaluation as he cannot take care of himself due to multiple falls. Patient is not capable of taking care of himself at home and confused about the reason why he is here. Ddx considered but are not limited to: Failure to thrive, depression, multiple falls, AR, stroke, generalized weakness Vital signs: are WNL, pt. is afebrile H&PE are most consistent with: Multiple falls, failure to thrive, depression ORDERS: cBC, CMP, UA, urine tox screen, x-ray, EKG ED INTERVENTIONS: None required at this time. Patient was admited with diagnosis of failure to thrive, depression, multiple falls to Dr. Márquez under supervision of : Kojo pt stable at time of admission EKG Diagnostic Results Rate: normal Rhythm: NSR ST Segments: no acute changes Chest X-Ray Diagnostic Results Chest X-Ray Diagnostic Results : Chest X-Ray Ordered: Yes # of Views/Limited/Complete: 1 View Indication: Other EP Interpretation: Yes PA Xray: Interpretation reviewed, by supervising MD, and agrees with findings. Interpretation: no consolidation, no effusion, no pneumothorax Impression: No acute disease Electronically Signed by: radha Raphael PA-C Last Vital Signs Date Time Temp Pulse Resp B/P (MAP) Pulse Ox O2 Delivery O2 Flow Rate FiO2 09/22/18 15:34 98.4 89 16 129/78 96 Room Air Disposition: ADMITTED INPATIENT Condition: Stable Referrals: NON PHYSICIAN (PCP) Radha Romo Sep 22, 2018 15:49
--- NOTE | 2018-09-22 16:20 | NUR ---
ED Nurse Note: Politely asked him if he needs something twice, patient did not anwer to RN's question.
--- NOTE | 2018-09-22 16:52 | NUR ---
ED Nurse Note: water provided to the patient. Phonenumber to ED provided to the patient as patient asked.
--- NOTE | 2018-09-22 17:45 | Diagnostic Imaging Report ---
Indication: Chest pain Technique: One view of the chest Comparison: none Findings: There is questionable mild interstitial prominence. The heart is upper limits normal in size. There is tortuous and ectatic. Upper extent is unremarkable. Impression: Equivocal mild interstitial prominence. If real, could represent senescent interstitial changes versus mild interstitial edema. Correlate with clinical findings
--- NOTE | 2018-09-22 18:00 | NUR ---
ED Nurse Note: patient is walking around with cane, using bathroom.
--- NOTE | 2018-09-22 18:20 | NUR ---
ED Nurse Note: Dinner tray provided to the patient.
--- NOTE | 2018-09-22 19:11 | NUR ---
HAND-OFF: Report given to Ayah AMARO.
[2018-09-22] MEDS ORDERED: LORazepam 1mg tab ORAL ONE (19:30)
[2018-09-22 20:20] VITALS: BP 129/78
--- NOTE | 2018-09-22 20:20 | NUR ---
ED Nurse Note: Patient was admited to [facility] due to weakness, and failure to thrive. AAO x4, VSS at this time, patient is ambulatory with cane. Patient was transfered via gurney, with all belongings.
[2018-09-22 20:52] VITALS: BP 114/72
[2018-09-22] MEDS ORDERED: LORazepam 1mg tab ORAL PRN (22:45)
[2018-09-22] MEDS ORDERED: Zolpidem 5mg tab ORAL PRN (22:45)
--- NOTE | 2018-09-22 22:50 | NUR ---
NURSE NOTES: 63 yo M admitted. Patient is alert and oriented x 4 with chief complaint of failure to thrive. Spoke with Dr Bowie regarding admitting orders. Orders obtained and carried out. Belongings checked and at bedside. IV intact. No complaints of pain at this time. No respiratory distress noted. Patient asked for food upon arrival. Instructed use of call light which is within reach. Bed is in lowest position with 2 side rails up. Will continue to monitor the patient.
[2018-09-23] VITALS: BP 140/84
[2018-09-23 04:00] VITALS: BP 134/86
--- NOTE | 2018-09-23 07:00 | NUR ---
HAND-OFF: Report given to SONDRA Muñoz.
[2018-09-23 08:00] VITALS: BP 130/80
[2018-09-23] MEDS: Tamsulosin 0.4mg cap ORAL SCH (08:57)
[2018-09-23] MEDS: Lyrica 25mg cap ORAL SCH ×3 (08:59→18:08)
--- NOTE | 2018-09-23 09:00 | NUR ---
NURSE NOTES: RN WENT INTO PT'S ROOM TO GIVE SCHEDULED 0900 MEDICATIONS. PT WAS VERY IRRITATED, STATED HE DID NOT WAN T MEDICATION THIS EARLY IN THE MORNING. RN ATTEMPTED TO EXPLAIN MEDS ARE SCHEDULED AT A CERTAIN TIME AND PT MUST TAKE IN 1 HOUR TIMEFRAME. PT STARTED YELLING AT RN AND TOLD RN TO LEAVE THE ROOM. PT CALLED BACK RN AND STATED HE WILL TAKE LYRICA AND FLOMAX.
[2018-09-23 12:00] VITALS: BP 132/79
--- NOTE | 2018-09-23 15:21 | NUR ---
CASE MANAGEMENT: INITIAL REVIEW 63 YO M PRESENTED TO OUR ED FROM HOME CC: DR RIZO PT PMHx: BIPOLAR. DEPRESSION. FTT. HTN. ASTHMA. GASTRIC CA. ULCERS. SI:FTT T 98.4 HR 82 RR 16 B/P 122/78 SATS 96% ON RA NA 134 AST 13 ALT 10 U TOX (+THC) IS: DEPAKOTE PO QHS NORVASC PO QD FLOMAX PO QD RISPERDAL PO QHS LYRICA PO TID ZANAFLEX PO TID PATIENT ADMITTED TO MED/SURG 09/22/2018 @ 1626 DCP:PATIENT TO BE DISCHARGED TO HOME ONCE MEDICALLY CLEARED. PLAN OF CARE: PSYCH EVAL Addendum: 09/23/18 at 1753 by Janna Hansen CM INTERQUAL MET
[2018-09-23 16:00] VITALS: BP 136/84
--- NOTE | 2018-09-23 16:00 | NUR ---
NURSE NOTES: PT WAS EDUCATED ON NEW MEDICATIONS DEPAKOTE AND RISPERDAL BY DR POWERS. PT SUDDENLY GOT VERY ANGRY AND YELLED "I'M NOT TAKING NO DAMN DEPAKOTE. SHE OUTTA HER MIND. DON'T EVEN BRING ME THE MEDICINE 'CAUSE I/M NOT TAKING IT! I TOLD HER TO CALL MY THERAPIST. I GAVE HER THE NUMBER!". RN EDUCATED PT HAS THE RIGHT TO REFUSE MEDICATION.
--- NOTE | 2018-09-23 19:56 | NUR ---
HAND-OFF: Report given to Hugo GONZALEZ RN.
[2018-09-23 20:00] VITALS: BP 124/72
--- NOTE | 2018-09-23 20:03 | NUR ---
NURSE NOTES: Received report from SONDRA Muñoz. Patient A&Ox4. On room air, no signs of distress. IV intact, patent, and saline locked. Bed in lowest position with call light in reach. Will continue with plan of care.
[2018-09-23] MEDS: Depakote ER 250mg tab ORAL SCH (21:00)
[2018-09-23] MEDS ORDERED: OLANZapine 2.5mg tab ORAL SCH (21:00)
[2018-09-23] MEDS: LORazepam 1mg tab ORAL PRN (22:13)
[2018-09-24] VITALS: BP 121/76
--- NOTE | 2018-09-24 01:30 | Progress Note ---
DATE: 09/23/2018 SUBJECTIVE: This is elderly male, currently feeling generalized weakness, confusion. No fever. No chills. He is also depressed. OBJECTIVE: VITAL SIGNS: Blood pressure 130/70, pulse 74, and respirations 18. HEENT: NAD. CHEST: Bilaterally clear. CARDIOVASCULAR: Regular rhythm. ABDOMEN: Soft. Positive bowel sounds. Nontender. EXTREMITIES: CCE. NEUROLOGICAL: The patient has foot drop on the left side. GENITOURINARY: Deferred. ASSESSMENT: 1. Altered mental status. 2. Failure to thrive. 3. Hypertension. 4. Depression. Consider psych consult. Continue current PT and OT. DC IV fluid, and discharge plan to SNF. His blood pressure is slightly high, we will add Norvasc and add clonidine p.r.n. Maverick Bowie M.D. DR: DUANE JOB#: [id number] CC:
[2018-09-24 04:00] VITALS: BP 136/82
--- NOTE | 2018-09-24 07:31 | Consultation ---
DATE OF CONSULTATION: 09/23/2018 CONSULTING PHYSICIAN: Natalie Mac M.D. HISTORY OF PRESENT ILLNESS: The patient is a 63-year-old male as well as multiple who was admitted to the hospital for medical condition. The patient has been responding to internal stimuli, has poor impulse control. He is easily agitated. has a psychiatrist who recently changed the medication to Risperdal and Depakote. The patient is very in regard to providing history or giving information about his psychiatrist. PAST PSYCHIATRIC HISTORY: Depression and anxiety as well as schizoaffective disorder. He has been hospitalized in a psychiatric [facility]. Denies any suicide attempt. PAST MEDICAL HISTORY: Significant for hypertension. ALLERGIES: No known drug allergies. SUBSTANCE USE HISTORY: No known history of illicit drugs or alcohol. Urine toxicology is positive for marijuana. MENTAL STATUS EXAMINATION: The patient is alert and oriented x3. Mood is irritable. Affect is constricted, congruent with mood. Thought process is concrete. Thought content, no suicidal or homicidal ideation. ASSESSMENT: AXIS I: Schizoaffective disorder versus bipolar disorder. AXIS II: Deferred. AXIS III: As above. AXIS IV: Moderate. AXIS V: 25. PLAN: 1. The patient will be started on Depakote 750 mg at bedtime and risperidone 2 mg at bedtime. Discontinue the Remeron. 2. Discontinue the Zyprexa. 3. The patient is provided with reality orientation and supportive therapy. Natalie Mac M.D. DR: SHYANN JOB#: [id number] CC: JANAE
--- NOTE | 2018-09-24 07:33 | NUR ---
NURSE NOTES: Gallegos (Liz), RN.
--- NOTE | 2018-09-24 07:35 | NUR ---
NURSE NOTES: Patient received resting in bed, alert and oriented. Breathing unlabored on room air. Denies pain or SOB at this time. Quad cane within reach. Urinal by bedside. Bed locked in lowest position, call light placed within reach. Will continue to monitor.
[2018-09-24 08:00] VITALS: BP 131/79
[2018-09-24] MEDS: Lyrica 25mg cap ORAL SCH ×3 (09:05→17:37)
[2018-09-24] MEDS: Tamsulosin 0.4mg cap ORAL SCH (09:05)
[2018-09-24] MEDS: LORazepam 1mg tab ORAL PRN (09:15)
--- NOTE | 2018-09-24 10:27 | NUR ---
DISCHARGE PLANNING: NOTE DC ORDER NOTED. CLINICALS FAXED TO [facility] T: [phone] F: [phone] Addendum: 09/24/18 at 1133 by Janna Hansen CM [facility] IS ACCEPTING THIS PATIENT TO ROOM 133B TOMORROW 09/25
[2018-09-24 11:55] VITALS: BP 136/84
[2018-09-24 16:00] VITALS: BP 129/81
--- NOTE | 2018-09-24 19:27 | Cardiology Report ---
APPROVED REPORT EKG Measurement Heart [id number] ID [id number] Sinus rhythm with 1st degree AV block Otherwise normal ECG
--- NOTE | 2018-09-24 19:30 | NUR ---
NURSE NOTES: RECEIVED PATIENT LYING IN BED, AWAKE, ALERT/ORIENTED X4, VERBALLY RESPONSIVE, DENIES PAIN. NO SIGNS AND SYMPTOMS OF ACUTE CARDIO RESPIRATORY DISTRESS/SHORTNESS OF BREATH, DENIES CHEST PAIN. ABDOMEN SOFT/NON DISTENDED/BOWEL SOUNDS AUDIBLE. ENCOURAGED PATIENT TO UTILIZE CALL LIGHT FOR ASSISTANCE FOR PREVENTIVE MEASURES/QUAD CANE AT BEDSIDE, VERBALIZED UNDERSTANDING. SIDE RAILS UP X3/BED IN LOWEST POSITION FOR SAFETY. CALL LIGHT WITHIN REACH. NAD. CONTINUE WITH CURRENT PLAN OF CARE.
--- NOTE | 2018-09-24 19:47 | NUR ---
HAND-OFF: Report given to Dinah BLANCAS.
[2018-09-24 20:00] VITALS: BP_SYST 105; BP_SYST 124; BP_DIAS 72; BP_DIAS 76
[2018-09-24] MEDS: Depakote ER 250mg tab ORAL SCH (21:00)
--- NOTE | 2018-09-24 22:30 | Progress Note ---
DATE: 09/24/2018 SUBJECTIVE: A 63 years old male, currently comfortable in the bed, generalized weakness, also has poor appetite. OBJECTIVE: VITAL SIGNS: Blood pressure is 120/90, pulse 60, no fever. HEENT: NAD. CHEST: Bilaterally clear. CARDIOVASCULAR: Regular rhythm. No gallop. No murmur. ABDOMEN: Soft. EXTREMITIES: CCE. NEUROLOGICAL: The patient has no focal deficit. ASSESSMENT: 1. Depression. 2. Failure to thrive. 3. Generalized weakness. 4. Footdrop. 5. Hypertension. PLAN: Continue current treatment and [facility]. Maverick Bowie M.D. DR: Natasha JOB#: [id number] CC:
--- NOTE | 2018-09-24 23:45 | Progress Note ---
DATE: 09/24/2018 SUBJECTIVE: The patient is presenting with irritable mood and he also has poor impulse control. He was responding to internal stimuli. The patient has been compliant with his medication. He has been refusing his Risperdal and Depakote. The patient has poor insight, not eating. MENTAL STATUS EXAMINATION: The patient is alert and oriented x4. Mood is irritable. Affect is constricted, congruent with mood. Thought process is concrete. Thought content, no suicidal or homicidal ideations. ASSESSMENT: Schizoaffective disorder versus bipolar disorder. PLAN: 1. The patient's risperidone will be stopped. 2. We will start the patient on Zyprexa 10 mg p.o. nightly. 3. Provide the patient with reality orientation and supportive therapy. Natalie Mac M.D. DR: SAMIRA JOB#: [id number] CC:
[2018-09-25] VITALS: BP 124/76
--- NOTE | 2018-09-25 06:00 | NUR ---
NURSE NOTES: RESTED WELL, NO SIGNIFICANT CHANGE OF CONDITION NOTED THROUGHOUT THE NIGHT. SAFETY MAINTAINED. NAD.
--- NOTE | 2018-09-25 07:30 | NUR ---
HAND-OFF: Report given to SONDRA MENSAH.
--- NOTE | 2018-09-25 07:46 | NUR ---
NURSE NOTES: Patient received eating breakfast, alert and oriented. Denies pain or SOB at this time. Breathing unlabored on room air. IV site on left arm saline lock. Urinal by the bedside. Call light placed within reach. Quad cane by the bedside. Will continue to monitor.
[2018-09-25 08:00] VITALS: BP 104/66
[2018-09-25] MEDS: Lyrica 25mg cap ORAL SCH ×2 (09:00→13:00)
[2018-09-25] MEDS: Tamsulosin 0.4mg cap ORAL SCH (09:00)
--- NOTE | 2018-09-25 10:01 | NUR ---
DISCHARGE DISPOSITION: PLEASE READ PATIENT TO BE DISCHARGED TO [address] ROOM [address] T: [phone]>> CALL FOR REPORT [facility] ETA 1200 SKILLED Addendum: 09/25/18 at 1038 by Janna Hansen CM VM LEFT FOR [facility] [phone]. INCOMPLETE NUMBER PROVIDED FOR DAUGHTER JANNA DUKES.
[2018-09-25 12:00] VITALS: BP 106/71
--- NOTE | 2018-09-25 13:30 | NUR ---
NURSE NOTES: Patient is discharged to [facility] accompanied by ambulance personnel. Patient stated that he had all his belongings without the nurse needing to inspect, and signed the belongings form. IV site safely removed, covered with gauze and tape. Report given to aSvana AMARO. Patient accidentally left phone kennel assistant at bedside. RN notified Savana AMARO and told her the kennel assistant will be kept at 4E. Savana verbalized understanding and stated she will relay message to the patient. Discharge packet provided.
[2018-09-25] MEDS ORDERED: OLANZapine 10mg tab ORAL SCH (21:00)
--- NOTE | 2018-09-26 00:18 | Psych Consult Progress Note ---
Psychiatry Progress Note Psychiatry Progress Note Neurological/Psychiatric: Reports: anxiety, depressed, emotional problems Allergies: Coded Allergies: No Known Allergies (Unverified , 06/16/13) Objective Data Height (Feet): 6 Height (Inches): 2.00 Weight (Pounds): 212 General Appearance: WD/WN, alert, agitated Appearance: no abnormalities noted Behavior Mannerisms: good eye contact Mental Status Exam - Affect: blunted Speech: clear Mental Status Exam - Suicidal: not present Assessment/Plan Assessment/Plan: AXIS I: Schizoaffective disorder versus bipolar disorder. AXIS II: Deferred. AXIS III: As above. AXIS IV: Moderate. AXIS V: 25. PLAN: 1. The patient will be started on Depakote 750 mg at bedtime and risperidone 2 mg at bedtime. Discontinue the Remeron. 2. Discontinue the Zyprexa. 3. The patient is provided with reality orientation and supportive therapy. Natalie Mac MD Sep 26, 2018 00:18
--- NOTE | 2018-09-28 08:43 | Discharge Summary ---
Discharge Summary Discharge Summary _ DATE OF ADMISSION: 09/22/2018 DATE OF DISCHARGE: 09/25/2018 DISCHARGED BY: Dr. Bowie REASON FOR ADMISSION: 63 years old male with past medical history of hypertension, asthma, gastric cancer, bipolar disorder, depression, recurrent falls, failure to thrive, was sent to emergency room for evaluation due to recurrent falls. Patient lives by himself, had multiply falls , and was not capable of taking care of himself at home. Upon evaluation chest x-ray revealed equivocal mild interstitial prominence. Laboratory work-up demonstrated no leukocytosis, stable hemoglobin and hematocrit. Stable electrolytes and renal parameters. Troponin negative. EKG revealed sinus rhythm with first-degree AV block, no acute ischemic changes. Urine toxicology screen was positive for marijuana. Patient admitted for failure to thrive, multiply falls, and depression. CONSULTANTS: psychiatrist [facility] COURSE: Patient admitted to medical surgical floor. Blood pressure was closely monitored and managed with calcium channel corina. Blood pressure remained stable. Psychiatric evaluation was requested. Psychiatrist seen and evaluated patient. Psychiatrist seen and evaluated patient Per psychiatrist patient had schizoaffective disorder versus bipolar disorder. Psychiatric medication regimen was optimized as per psychiatrist. Patient started on Depakote and risperidone. Remeron and Zyprexa were discontinued. Reality orientation and supportive therapy provided. Bowel regimen instituted. Supportive care provided. Failure to thrive was possibly due to depression and psychiatric disorder. Nutritional evaluation was done. Patient maintained good oral intake. Fall precautions were maintained. [facility] the [facility] facility for [facility] of care. Patient was stable for transfer. FINAL DIAGNOSES: Schizoaffective disorder versus bipolar disorder Hypertension Depression DISCHARGE MEDICATIONS: See Medication Reconciliation list. DISCHARGE INSTRUCTIONS: Patient was discharged to the prison facility. Follow up with medical doctor at the facility. I have been assigned to dictate discharge summary for this account. I was not involved in the patient's management. Gay Cuba NP Sep 28, 2018 08:43
== END 2018-09-25 13:45 | DRG 885 ==
LOC: EMR 14:10 → 4E 16:26 → EDBEDREQ 17:38
DX: F25.9 Schizoaffective disorder, unspecified (principal); R62.7 Adult failure to thrive; I10 Essential (primary) hypertension; F31.9 Bipolar disorder, unspecified; M21.372 Foot drop, left foot; Z85.028 Personal history of other malignant neoplasm of stomach; I44.0 Atrioventricular block, first degree; Z91.81 History of falling; R29.6 Repeated falls
CPT/HCPCS: 36415; 71045; 80053; 80164; 80307; 81003; 83690; 84484; 85025; 93005; 99285